=== PATIENT | female | born 1935 | race Caucasian/White ===

== ENCOUNTER 2022-09-26 07:51 | Emergency (ER) | payer MEDICARE, BC ==
[2022-09-26] MEDS ORDERED: Ipratropium/Albuterol 3 ML NEB ONE (08:04)
[2022-09-26 08:25] LABS: Actual Bicarbonate (HCO3v) 17 mEq/L (22-28); Base Excess -6.6 mEq/L (-2 - +2); Calcium, Ionized (venous) 1.01 mmol/L (1.16-1.32); Chloride (VBG) 106 mmol/L (98-106); Hemoglobin (Hb) 8.5 g/dL (11.7-16.1); Potassium (VBG) 4.02 mmol/L (3.70-5.30); Puncture Site Other Site; Sodium 134.5 mmol/L (133-146)
[2022-09-26] MEDS ORDERED: Aspirin Chewable 81 MG TAB ONE (08:25)
[2022-09-26 08:36] LABS: #Basophils 0.1 10x3/uL (0.0-0.2); #Monocytes 0.7 10x3/uL (0.0-1.1); #Neutrophils 11.3 10x3/uL (1.5-8.4); %Basophils 0.4 % (0.0-2.0); %Eosinophils 0.2 % (0.0-6.0); %Lymphocytes 3.2 % (18.0-47.0); %Monocytes 5.9 % (0.0-10.0); %Neutrophils 89.6 % (40.0-75.0); Hemoglobin 7.5 g/dL (12.0-15.5); Mean Corpuscular HGB CONC 32.1 g/dL (32.0-36.0); Mean Corpuscular Hemoglobin 29.3 pg (27.0-33.0); Mean Corpuscular Volume 91.4 fl (81.6-98.3); Mean Platelet Volume 10.9 fl (7.4-10.4); Platelet Count 159 10x3/uL (150-450); RBC Distribution Width 14.1 % (11.5-14.5); Red Blood Cell (RBC) Count 2.56 10x6/uL (3.90-5.03); White Blood Cell (WBC) Count 12.6 10x3/uL (3.5-10.5)
[2022-09-26 08:45] LABS: PTT 28.1 sec (22.0-33.0); Prothrombin Time 11.3 sec (9.5-12.1)
[2022-09-26 08:53] LABS: ALT (SGPT) Less than 6 U/L (8-55); AST (SGOT) 12 U/L (5-34); Albumin 3.5 g/dL (3.4-4.8); Alkaline Phosphatase 54 U/L (40-110); Anion Gap 16 mmol/L (10-20); BUN (Urea Nitrogen) 66 mg/dL (9.8-20.1); Bilirubin, Total 0.5 mg/dL (0.2-1.2); Calc. Creatinine Clearance 0 mL/min (70-130); Calcium 8.3 mg/dL (7.8-10.44); Carbon Dioxide 20 mmol/L (23-31); Chloride 109 mmol/L (98-107); Estimated GFR 7; Globulin 2.9 g/dL (2.4-3.5); Glucose 136 mg/dL (83-110); Potassium 4.3 mmol/L (3.5-5.1); Protein, Total 6.4 g/dL (5.8-8.1); Sodium 141 mmol/L (136-145)
[2022-09-26 09:17] LABS: SARS-CoV-2 NAA Rapid Test Not Detected (NotDetected)
[2022-09-26] MEDS ORDERED: Furosemide 40 MG/4 ML VIAL ONE (09:46)
== END 2022-09-26 12:15 | disposition short-term general hospital (02) ==
LOC: CSHERS 07:51
DX: R06.09 Other forms of dyspnea (principal); N17.9 Acute kidney failure, unspecified; J81.1 Chronic pulmonary edema; D72.829 Elevated white blood cell count, unspecified; Z20.822 Contact with and (suspected) exposure to COVID-19
CPT/HCPCS: 0240U; 71045; 82805; 83880; 84484; 85610; 85730; 93005; 96374; 99285; 36415; 80053; 84443; 85025; J1940; J7620